=== PATIENT | female | born 1980 | race Caucasian/White ===

== ENCOUNTER → 2017-06-06 | Outpatient (CLI) | payer OTHER ==
--- NOTE | 2017-06-06 08:59 | US ---
EXAMINATION TYPE: US abdomen complete DATE OF EXAM: 06/06/2017 COMPARISON: NONE CLINICAL HISTORY: R10.9 Unspecified Abdominal Pain; Epigastric pain per patient. EXAM MEASUREMENTS: Liver Length: 14.9 cm Gallbladder Wall: 0.2 cm CBD: 0.4 cm Spleen: 8.7 cm Right Kidney: 10.8 x 6.3 x 4.1cm Left Kidney: 11.5 x 6.0 x 4.5 cm Pancreas: wnl Liver: wnl Gallbladder: wnl; fold at fundus Evidence for sonographic Silveira's sign: No CBD: wnl Spleen: wnl Right Kidney: wnl Left Kidney: wnl Upper IVC: wnl Abd Aorta: wnl There is no ascites. The liver is homogenous. The intrahepatic portion of the IVC and proximal abdominal aorta are within normal limits. There is no evidence of cholelithiasis. Common bile duct is unremarkable. The visu alized portions of the pancreas are homogenous. The spleen is unremarkable. Kidneys are symmetric a nd free of hydronephrosis, cortical medullary differentiation is maintained. No renal lesions are se en. IMPRESSION: No significant abnormality is evident
== END | disposition home or self-care (01) ==
LOC: RADUSWWP 07:31
PROVIDERS: ATTEND Family Medicine
DX: R10.9 Unspecified abdominal pain (principal)
CPT/HCPCS: 76700

== ENCOUNTER → 2020-03-09 | Outpatient (CLI) | payer OTHER ==
[2020-03-09 09:06] LABS: Basophils # (A) 0.1 k/uL (0-0.2); Basophils % (A) 1 %; Eosinophils # (A) 0.1 k/uL (0-0.7); Eosinophils % (A) 4 %; HCT 38.7 % (34.0-46.0); HGB 12.7 gm/dL (11.4-16.0); Lymphocytes # (A) 1.4 k/uL (1.0-4.8); Lymphocytes % (A) 41 %; MCH 31.4 pg (25.0-35.0); MCHC 32.9 g/dL (31.0-37.0); MCV 95.4 fL (80.0-100.0); Mean Platelet Volume 7.5; Monocytes # (A) 0.3 k/uL (0-1.0); Monocytes % (A) 9 %; Neutrophils # (A) 1.4 k/uL (1.3-7.7); Neutrophils % (A) 41 %; Platelet Count 245 k/uL (150-450); RBC 4.06 m/uL (3.80-5.40); RDW 14.3 % (11.5-15.5); WBC 3.4 k/uL (3.8-10.6)
[2020-03-09 14:44] LABS: ALT 14 U/L (8-44); AST 17 U/L (13-35); African American GFR (CKD) 109.2 (60.0-200.0); Albumin/Globulin Ratio 1.95 (1.60-3.17); Alkaline Phosphatase 41 U/L (41-126); BUN/Creat Ratio 21.25 Ratio (12.00-20.00); Calcium 9.1 mg/dL (8.7-10.3); Carbon Dioxide 28.2 mmol/L (21.6-31.8); Chloride 106 mmol/L (96-109); Chol/HDL Ratio 2.15; Cholesterol 153 mg/dL (0-200); Globulin 2.2 g/dL (1.6-3.3); Glucose 100 mg/dL (70-110); Non-African American GFR(CKD) 94.2 (60.0-200.0); Potassium 4.6 mmol/L (3.5-5.5); Sodium 140 mmol/L (135-145); Total Bilirubin 0.5 mg/dL (0.3-1.2); Total Protein 6.5 g/dL (6.2-8.2); Triglycerides <50.0 mg/dL (0.0-149.0)
== END | disposition home or self-care (01) ==
LOC: LABWHC1 07:56
PROVIDERS: ATTEND Family Medicine
DX: Z00.01 Encounter for general adult medical examination with abnormal findings (principal)
CPT/HCPCS: 36415; 80053; 80061; 84443; 85025

== ENCOUNTER → 2022-08-19 | Outpatient (CLI) | payer BC ==
--- NOTE | 2022-08-20 09:02 | MM ---
Reason for Exam: Screening (asymptomatic). Baseline mammogram. Patient History: Menarche at age 15. First Full-Term at age 27. Premenopausal. Paternal aunt had breast cancer at or over age 50. Sister had breast cancer under age 50. Last menstrual period: 08/02/2022 Risk Values: Annette 5 year model risk: 1.0%. NCI Lifetime model risk: 18.9%. Prior Study Comparison: Patient's first Mammogram. Tissue Density: The breast tissue is heterogeneously dense. This may lower the sensitivity of mammography. Findings: Analyzed By CAD. There is no suspicious group of microcalcifications or new suspicious mass in either breast. Intramammary lymph node in the right breast. Overall Assessment: Benign, BI-RAD 2 Management: Screening Mammogram of both breasts in 1 year. A clinical breast exam by your physician is recommended on an annual basis and results should be correlated with mammographic findings. Electronically signed and approved by: Kingsley Napier D.O.
== END | disposition home or self-care (01) ==
LOC: RADMAMWWP 13:52
PROVIDERS: ATTEND Family Medicine
DX: Z12.31 Encounter for screening mammogram for malignant neoplasm of breast (principal); Z80.3 Family history of malignant neoplasm of breast
CPT/HCPCS: 77067

== ENCOUNTER → 2023-08-28 | Outpatient (CLI) | payer BC ==
--- NOTE | 2023-08-28 16:25 | US ---
EXAMINATION TYPE: US groin LT DATE OF EXAM: 08/28/2023 COMPARISON: NONE CLINICAL INDICATION: Female, 42 years old with history of R59.0 LOCALIZED ENLARGED LYMPH NODES; Lump in left groin x 1 week TECHNIQUE: Left groin scanned in area of lump FINDINGS: Enlarged lymph node seen in area of concern measuring 4.2 x 1.8 x 0.9cm IMPRESSION: Left groin adenopathy.
== END | disposition home or self-care (01) ==
LOC: RADUSWWP 15:57
PROVIDERS: ATTEND Family Medicine
DX: R59.0 Localized enlarged lymph nodes (principal)

== ENCOUNTER → 2023-09-01 | Outpatient (CLI) | payer BC ==
--- NOTE | 2023-09-02 18:53 | MM ---
Reason for Exam: Screening (asymptomatic). Last screening mammogram was performed 12 month(s) ago. Patient History: Menarche at age 15. First Full-Term at age 27. Premenopausal. Paternal aunt had breast cancer at or over age 50. Sister had breast cancer under age 50. Last menstrual period: 08/27/2023 Risk Values: Annette 5 year model risk: 1.1%. NCI Lifetime model risk: 18.8%. Prior Study Comparison: 08/19/2022 Bilateral MG screening mammo w CAD, [facility]. Tissue Density: The breasts are heterogeneously dense, which may obscure small masses. Findings: Analyzed By CAD. There is no suspicious group of microcalcifications or new suspicious mass in either breast. Overall Assessment: Negative, BI-RAD 1 Management: Screening Mammogram of both breasts in 1 year. . Patient should continue monthly self-breast exams. A clinical breast exam by your physician is recommended on an annual basis. This exam should not preclude additional follow-up of suspicious palpable abnormalities. Note on Annette scores and lifetime risk: 1. A Annette score greater than 3% is considered moderate risk. If this is the case, consider specialist referral to assess eligibility for a risk reducing agent. 2. If overall lifetime risk for the development of breast cancer is 20% or higher, the patient may qualify for future screening with alternating mammogram and breast MRI. Electronically signed and approved by: Perry Crum M.D. Radiologist
== END | disposition home or self-care (01) ==
LOC: RADMAMWWP 08:51
PROVIDERS: ATTEND Family Medicine
DX: Z12.31 Encounter for screening mammogram for malignant neoplasm of breast (principal); Z80.3 Family history of malignant neoplasm of breast
CPT/HCPCS: 77063; 77067

== ENCOUNTER → 2023-09-08 | Outpatient (CLI) | payer BC ==
--- NOTE | 2023-09-09 07:27 | US ---
EXAMINATION TYPE: US groin LT DATE OF EXAM: 09/08/2023 COMPARISON: NONE CLINICAL INDICATION: Female, 42 years old with history of R59.9 L72.3 ENLARGED LYMPHNODES, SEBACEOUS CYST; known lymph node, scanned 11 days ago, no change, palpable TECHNIQUE: Lt groin scan of lymph node FINDINGS: Previously scanned as one large node and today it appears as 2 lymph nodes next to each ot her. Largest node = 2.0 x 1.5 x 0.5cm. Smaller node = 1.5 x 0.6 x 1.2cm. IMPRESSION: 2 mildly prominent lymph nodes are identified adjacent to the jugular.
--- NOTE | 2023-09-09 11:59 | US ---
EXAMINATION TYPE: US mass soft tissue chest/back DATE OF EXAM: 09/08/2023 COMPARISON: NONE CLINICAL INDICATION: Female, 42 years old with history of R59.9 L72.3 ENLARGED LYMPHNODES, SEBACEOUS CYST; palpable on left buttocks, red TECHNIQUE: Soft tissue scan of palpable FINDINGS: 0.9 x 1.3 x 0.4cm hypoechoic lesion noted within the dermis, not vascular IMPRESSION: Nonvascular hypoechoic area could reflect a sebaceous cyst. Correlate clinically.
== END | disposition home or self-care (01) ==
LOC: RADUSWWP 15:08
PROVIDERS: ATTEND Surgery
DX: R59.9 Enlarged lymph nodes, unspecified (principal); L72.3 Sebaceous cyst